=== PATIENT | female | born 1990 | race Caucasian/White ===

== ENCOUNTER 2025-03-08 01:59 | Inpatient (IN) | payer OTHER, SELFPAY ==
[2025-03-08 02:18] VITALS: BP 128/71; BMI 27.0
[2025-03-08 02:38] LABS: Hematocrit 37.8 % (37.0-47.0); Hemoglobin 13.6 g/dL (12.0-16.0); Mean Corp Hgb Conc. 36.0 g/dL (33.0-37.0); Mean Corpuscular Volume 86.7 fL (81.0-99.0); Platelet Count 252 10^3/uL (130-400); Red Cell Dist. Width 12.1 % (11.5-14.5)
[2025-03-08] MEDS: TYLENOL 975 MG PO (02:43)
[2025-03-08] MEDS: ANCEF 10 IV (02:43)
[2025-03-08] MEDS: BICITRA 30 ML PO (02:43)
[2025-03-08] MEDS: PRENATAL PLUS 1 TABLET PO (10:11)
[2025-03-08] MEDS: TORADOL 15 MG IV ×3 (10:11→22:21)
[2025-03-08] MEDS: COLACE 100 MG PO ×2 (10:11→19:42)
[2025-03-08] MEDS: FLUSH (NSS) 1 FLUSH IV (22:21)
[2025-03-08] MEDS: ROXICODONE 5 MG PO (22:26)
[2025-03-09] MEDS: TORADOL 15 MG IV (03:50)
[2025-03-09] MEDS: FLUSH (NSS) 3 FLUSH IV (03:54)
[2025-03-09 04:33] LABS: Hematocrit 32.6 % (37.0-47.0); Hemoglobin 11.4 g/dL (12.0-16.0); Mean Corp Hgb Conc. 35.0 g/dL (33.0-37.0); Mean Corpuscular Volume 89.8 fL (81.0-99.0); Platelet Count 199 10^3/uL (130-400); Red Cell Dist. Width 12.3 % (11.5-14.5)
[2025-03-09] MEDS: COLACE 100 MG PO ×2 (08:29→22:36)
[2025-03-09] MEDS: PRENATAL PLUS 1 TABLET PO (08:29)
[2025-03-09] MEDS: MYLICON 80 MG PO (08:29)
--- NOTE | 2025-03-09 09:08 | W.PN.ANS.POP ---
Anesthesia Post Operative
- Anesthesia Post Op Note
Vital Signs Stable-See Nursing Note: Yes
Airway Patent: Yes
Adequate Pain Control: Yes
Change in Mental Status: No
Current Postoperative Nausea & Vomiting: No
Anesthesia Complications: No
General Anesthetic Recall: No
Unplanned Admission: No
Post Op Hydration Adequate: Yes
[2025-03-09] MEDS: MOTRIN 600 MG PO ×3 (10:35→22:35)
[2025-03-09] MEDS: TYLENOL 650 MG PO ×3 (10:35→22:35)
[2025-03-09] MEDS: ROXICODONE 5 MG PO (22:40)
[2025-03-10] MEDS: MOTRIN 600 MG PO ×2 (06:10→16:13)
[2025-03-10] MEDS: TYLENOL 650 MG PO ×2 (06:10→16:13)
[2025-03-10] MEDS: ROXICODONE 5 MG PO ×2 (06:16→23:47)
[2025-03-10] MEDS: COLACE 100 MG PO ×2 (08:50→19:47)
[2025-03-10] MEDS: PRENATAL PLUS 1 TABLET PO (08:50)
[2025-03-10 13:34] LABS: Syphilis/T. pallidum Ab Reflex Negative (Negative)
[2025-03-11] MEDS: MOTRIN 600 MG PO (05:43)
[2025-03-11] MEDS: TYLENOL 650 MG PO (05:44)
[2025-03-11] MEDS: COLACE 100 MG PO (08:18)
[2025-03-11] MEDS: PRENATAL PLUS 1 TABLET PO (08:18)
== END 2025-03-11 09:08 | disposition home or self-care (01) | DRG 785 ==
LOC: LDRP 01:59
PROVIDERS: ADMITTING PHYSICIAN Obstetrics & Gynecology
PROC: 10D00Z1 Extraction of Products of Conception, Low, Open Approach (ICD-10-PCS; 2025-03-08)
PROC: 0UT70ZZ Resection of Bilateral Fallopian Tubes, Open Approach (ICD-10-PCS; 2025-03-08)
DX: O34.211 Maternal care for low transverse scar from previous cesarean delivery (principal); Z3A.39 39 weeks gestation of pregnancy; Z37.0 Single live birth; O99.824 Streptococcus B carrier state complicating childbirth; Z14.8 Genetic carrier of other disease
CPT/HCPCS: 58605; 85027; 86780; 86850; 86900; 86901; 88302